=== PATIENT | male | born 1980 | race Asian ===

== ENCOUNTER 2016-04-03 08:23 | Outpatient (CLI) | payer OTHER | END 2016-04-03 19:39 | disposition home or self-care (01) | LOC: SCT 08:23 | DX: S82.51XA Displaced fracture of medial malleolus of right tibia, initial encounter for closed fracture (principal); X58.XXXA Exposure to other specified factors, initial encounter; Y93.89 Activity, other specified; Y92.89 Other specified places as the place of occurrence of the external cause; Y99.8 Other external cause status; R60.0 Localized edema | CPT/HCPCS: 73700-TC ==

== ENCOUNTER 2016-04-11 09:09 | Outpatient (CLI) | payer OTHER | END 2016-04-11 17:54 | disposition home or self-care (01) | LOC: SMI 09:09 | DX: M25.562 Pain in left knee (principal) | CPT/HCPCS: 73721 ==